=== PATIENT | female | born 1965 | race Two or more races ===

== ENCOUNTER → 2024-10-08 | Outpatient (CLI) | payer MEDICAID, SELFPAY ==
--- NOTE | 2024-10-08 09:00 | XR_ITS ---
Examination: Screening digital mammography, bilateral Computer aided detection 3-D breast Tomosynthesis, bilateral Date and time of exam: October 08, 2024 0827 hours No priors Indication: Screening Technique: Nonmagnified MLO, CC views of the breasts to been obtained, reconstructed from 3-D Tomosynthesis images. R2 computer aided detection program utilized for evaluation of suspicious masses and/or abnormal calcifications. 3-D Tomosynthesis images obtained. Findings: The breasts are heterogeneously dense, which may obscure small masses 20 mm focal asymmetry upper right breast MLO view, 4.7 cm from the nipple Benign calcifications Impression: BI-RADS Category 0: Incomplete: Need additional imaging evaluation 20 mm focal asymmetry upper right breast MLO view, 4.7 cm from the nipple, recommend follow-up spot tomographic views upper outer quadrant right breast right breast sonography to complete the workup.
== END | disposition home or self-care (01) ==
PROVIDERS: PCP Nurse Practitioner Family; Referring Provider Nurse Practitioner Family; Visit Provider Nurse Practitioner Family
DX: Z12.31 Encounter for screening mammogram for malignant neoplasm of breast (principal); R92.8 Other abnormal and inconclusive findings on diagnostic imaging of breast; N64.89 Other specified disorders of breast
CPT/HCPCS: 77063; 77067

== ENCOUNTER → 2024-10-20 | Outpatient (CLI) | payer MEDICAID, SELFPAY ==
--- NOTE | 2024-10-20 08:23 | XR_ITS ---
Examination: PA lateral chest 2 views TECHNIQUE: Upright PA lateral chest 2 views Exam date and time: October 20, 2024 0834 hours INDICATIONS: Posterior left rib pain several months FINDINGS: Normal heart size Lungs are clear. Moderate osteopenia. Clavicles ribs thoracic vertebral bodies appear intact IMPRESSION: No active disease
== END | disposition home or self-care (01) ==
PROVIDERS: PCP Nurse Practitioner Family; Referring Provider Nurse Practitioner Family; Visit Provider Nurse Practitioner Family
DX: R07.81 Pleurodynia (principal)
CPT/HCPCS: 71046

== ENCOUNTER 2024-11-09 10:30 | Day surgery (SDC) | payer MEDICAID, SELFPAY ==
[2024-11-09] VITALS (9 sets, daily range): BP systolic 95–126; BP diastolic 67–90; PULSE 58–73; RESP 10–18; TEMP 36.4–36.8; O2SAT 95–100; BMI 27.5
[2024-11-09] MEDS: SODIUM CHLORIDE 0.9% 500 ML 500 ML 20 ML IV (11:53)
[2024-11-09] MEDS: DiphenhydrAMINE INJ 50 MG/ML VIAL 25 MG IV (11:56)
[2024-11-09] MEDS: MIDAZOLAM INJ 1 MG/ML VIAL 2 ML (ASD USE ONLY) 2 MG IV (12:03)
[2024-11-09] MEDS: fentaNYL CIT INJ 50 mCg/ML AMP 2ML (ASD USE ONLY) IV (12:03)
== END 2024-11-09 13:35 | disposition home or self-care (01) ==
PROVIDERS: Referring Provider Internal Medicine Gastroenterology; Visit Provider Internal Medicine Gastroenterology
PROC: 0DBE8ZX Excision of Large Intestine, Via Natural or Artificial Opening Endoscopic, Diagnostic (ICD-10-PCS; CPT 45380; principal; 2024-11-09 14:45)
DX: Z12.11 Encounter for screening for malignant neoplasm of colon (principal); K64.8 Other hemorrhoids; E03.9 Hypothyroidism, unspecified; E11.9 Type 2 diabetes mellitus without complications
CPT/HCPCS: 45378; J1200; J2250; J3010; J7040

== ENCOUNTER → 2024-11-29 | Outpatient (CLI) | payer MEDICAID, SELFPAY ==
--- NOTE | 2024-11-29 | XR_ITS ---
Examination: PA lateral chest 2 views TECHNIQUE: Upright PA lateral chest 2 views Exam date and time: November 29, 2024 0805 hours Comparison October 20, 2024 INDICATIONS: Anterior chest pain coughing beginning 2 weeks ago. FINDINGS: Normal heart size. Lungs are clear. Osseous structures are intact. IMPRESSION: No active disease
== END | disposition home or self-care (01) ==
PROVIDERS: PCP Nurse Practitioner Family; Referring Provider Nurse Practitioner Family; Visit Provider Nurse Practitioner Family
DX: R07.9 Chest pain, unspecified (principal); R05.9 Cough, unspecified
CPT/HCPCS: 71046

== ENCOUNTER → 2024-12-20 | Outpatient (CLI) | payer MEDICAID, SELFPAY ==
--- NOTE | 2024-12-20 08:03 | XR_ITS ---
Examination: Diagnostic digital mammography, unilateral, right Computer aided detection 3-D breast Tomosynthesis, unilateral Date and time of exam: December 20, 2024 0807 hours INDICATIONS: Mammogram October 08, 2024 20 mm focal asymmetry upper right breast MLO view Technique: Nonmagnified MLO, CC views of the right breast have been obtained, reconstructed from 3-D Tomosynthesis images. R2 computer aided detection program utilized for evaluation of suspicious masses and/or abnormal calcifications. 3-D Tomosynthesis images obtained. Findings: The breast is heterogeneously dense, which may obscure small masses Focal asymmetry remains upper outer right breast, 20 mm Impression: BI-RADS category 3: Probably benign findings One additional 6 month right mammogram follow-up is needed as well as right breast sonography
== END | disposition home or self-care (01) ==
LOC: CDIM 07:59
PROVIDERS: Referring Provider Nurse Practitioner Family; Visit Provider Nurse Practitioner Family
DX: R92.331 Mammographic heterogeneous density, right breast (principal)
CPT/HCPCS: 77061; 77065; G0279

== ENCOUNTER → 2025-02-16 | Outpatient (CLI) | payer MEDICAID, SELFPAY ==
--- NOTE | 2025-02-16 08:00 | XR_ITS ---
Examination: CT right , without contrast. 2-D sagittal reconstructions. 2-D coronal reconstructions. 3-D reconstructions. Date and time of exam:February 16, 2025 0806 hours INDICATIONS: Intermittent back pain one year CTDI: vol (mGy):21.5 DLP: (mGycm):725 Technique: Multiple 1.25 mm axial sections of the thoracic spine without intravenous contrast have been obtained. 2-D sagittal and coronal reconstructions have been obtained. 3-D reconstructions have been obtained. Low dose protocols were performed. One or more of the following dose reduction techniques were used; automated exposure control, adjustment of the mA and/or KV according to patient size, use of iterative reconstruction technique. Findings: Moderate osteopenia. No thoracic fracture Mild thoracic dextroscoliosis Mild diffuse thoracic disc narrowing Mild thoracic spondylosis Axial sections demonstrate no focal thoracic disc protrusion IMPRESSION: No thoracic fracture Mild diffuse thoracic degenerative disc disease If pain persists, consider MRI thoracic spine without contrast follow-up
== END | disposition home or self-care (01) ==
PROVIDERS: PCP Nurse Practitioner Family; Referring Provider Nurse Practitioner Family; Visit Provider Nurse Practitioner Family
DX: M51.34 Other intervertebral disc degeneration, thoracic region (principal)
CPT/HCPCS: 72128

== ENCOUNTER → 2025-04-27 | Outpatient (CLI) | payer MEDICAID, SELFPAY ==
--- NOTE | 2025-04-27 08:30 | XR_ITS ---
Examination: CT chest, without intravenous contrast. Sagittal and coronal 2-D reconstructions. Exam date and time: April 27, 2025, 0753 hours INDICATIONS: Diagnosis solitary pulmonary nodule CTDI:vol (mGy) 8.91 DLP: (mGycm) 324 Technique: Multiple 3.0 mm axial sections of the chest to been obtained. Bone and lung density settings are obtained. Sagittal and coronal 2-D reconstructions have been obtained. Low dose protocols were performed. One or more of the following dose reduction techniques were used; automated exposure control, adjustment of the mA and/or KV according to patient size, use of iterative reconstruction technique. Findings: No thoracic aortic aneurysmal dilatation Pulmonary artery segments are not enlarged. No paratracheal tracheobronchial or bronchopulmonary adenopathy. 5 mm soft pulmonary nodule right upper lobe image 157 6 mm subpleural pulmonary nodule lingular segment axial image 179 No pneumonia or pulmonary edema No visualized liver or splenic lesion No pancreatic or adrenal mass Kidneys partially visualized no hydronephrosis Moderate osteopenia IMPRESSION: Bilateral subcentimeter pulmonary nodules as above, with this study as baseline recommend continued 6 month follow-up CT chest without contrast
== END | disposition home or self-care (01) ==
LOC: CCTX 07:17
PROVIDERS: PCP Family Medicine; Referring Provider Nurse Practitioner Family; Visit Provider Nurse Practitioner Family
DX: R91.8 Other nonspecific abnormal finding of lung field (principal)
CPT/HCPCS: 71271

== ENCOUNTER → 2025-05-05 | Outpatient (CLI) | payer MEDICAID, SELFPAY ==
--- NOTE | 2025-05-05 11:48 | XR_ITS ---
Examination: Thyroid sonography complete TECHNIQUE: Grayscale sonographic images thyroid nodes INDICATIONS: Thyroid sonogram February 28, 2022 right thyroid lobe nodule 6 mm FINDINGS: Right thyroid 5.3 cm Left thyroid 4.4 cm No current thyroid nodules IMPRESSION: No current thyroid nodules
== END | disposition home or self-care (01) ==
PROVIDERS: PCP Nurse Practitioner Family; Referring Provider Nurse Practitioner Family; Visit Provider Nurse Practitioner Family
DX: E04.1 Nontoxic single thyroid nodule (principal)
CPT/HCPCS: 76536

== ENCOUNTER 2025-05-26 14:30 | Outpatient (RCR) | payer MEDICAID, SELFPAY ==
--- NOTE | 2025-05-17 13:43 | PTNOTE_ITS ---
PT OP Initial Eval Patient Information Outpatient Physical Therapy Treatment Date: 05/17/25 Visit Reasons: Back pain Medical Diagnosis: M51.34 Treatment Dx #1: back pain Start of Care: 05/17/25 Date of Onset: 1 yr ago Smoking Status Smoking Status: Never smoker Initial Assessment Subjective: Pt is 59 yr old tuvaluan speaking female who reports mid back pain x1 yr. Pt has pain with most positions and bending. This limits lifting and carrying tolerances. PMH: hypothyroidism Imaging: CT of T/S in EMR Mild diffuse thoracic degenerative disc disease Pt goal: less back pain Objective: T/S ArOM: Flexion: 10% of full with pain Extension: 30% Rotation: pain to the R SB: pain to the L TTP: high of T6-10 paraspinals L>R side UE strength: 4/5 in all planes Assessment: Pt presentation consistent with referring Dx of thoracic DDD with vertebral spurring. Pt not likely going to benefit from conservative Rx to meet long-term goals and has poor rehab potential but we will try a couple trial Rx's to teach HEP. Short Term and [facility] Goals 1. Ind with HEP 2. Decreased TTP of T/S paraspinals from high to min/mod 3. Improved rotation B to 75% of full Treatment Plan 1. Manual therapy ? 2. Therex ? 3. Modalities as indicated, moist heat, ice, estim Frequency and Duration: 1-2x a week for 3 trial visits then up to 12 if progressing Certification Dates: 05/17/25 to 08/15/25 Procedure Charges OP PT Eval Mod Complex 30 minutes: Yes
--- NOTE | 2025-05-24 16:44 | PTNOTE_ITS ---
PT Outpatient Daily Note <CELESTINE Goff - Last Filed: 05/24/25 16:50> OP Daily Note Visit Reasons: Back pain Subjective: Reports mid back pain Objective: See F/S for therex MT: [facility] T/S x 7 Assessment: Pt performed therex best with min verbal cues to correct posture and instructed to avoid pushing into pain. Plan: Continue with POC Length of Time (minutes) of Treatment: 30 Minutes <Constantino Hunter PT - Last Filed: 05/24/25 17:21> OP Daily Note Outpatient Physical Therapy Treatment Date: 05/24/25 Procedure Charges <CELESTINE Goff - Last Filed: 05/24/25 16:50> Therapeutic Exercise 30 minutes: Yes
--- NOTE | 2025-05-26 15:11 | PT.ODAYNRPT ---
PT Outpatient Daily Note OP Daily Note Outpatient Physical Therapy Treatment Date: 05/26/25 Visit Reasons: Back pain Subjective: States she is continuing to experience mid back pain L>R Objective: See F/S for therex MT: STM x T/S x 7 min Assessment: Pt tolerated therex well with no increase in pain, performs best with minimal verbal cues to correct posture and avoid painful ROM. Demonstrated good understanding of the importance to maintain good posture throughout day and during therex. Plan: Continue with POC Length of Time (minutes) of Treatment: 30 Minutes Procedure Charges Therapeutic Exercise 30 minutes: Yes
== END 2025-05-29 23:59 | disposition home or self-care (01) ==
LOC: CPTX 14:30
PROVIDERS: PCP Nurse Practitioner Family; Referring Provider Nurse Practitioner Family; Visit Provider Nurse Practitioner Family
DX: M54.6 Pain in thoracic spine (principal)
CPT/HCPCS: 97110; 97162

== ENCOUNTER → 2025-06-21 | Outpatient (CLI) | payer MEDICAID, SELFPAY ==
--- NOTE | 2025-06-21 15:06 | XR_ITS ---
Examination: Thyroid sonography complete TECHNIQUE: Grayscale sonographic images thyroid lobes Date and time: June 21, 2025 1518 hours, comparison May 05, 2025 INDICATIONS: 6 mm nodule right thyroid on sonogram February 28, 2022 FINDINGS: Right thyroid 3.1 cm Left thyroid 3.7 cm No cystic or solid nodules IMPRESSION: No solid nodules identified
== END | disposition home or self-care (01) ==
PROVIDERS: PCP Nurse Practitioner Family; Referring Provider Nurse Practitioner Family; Visit Provider Nurse Practitioner Family
DX: E04.1 Nontoxic single thyroid nodule (principal)
CPT/HCPCS: 76536

== ENCOUNTER 2025-06-27 15:30 | Outpatient (RCR) | payer MEDICAID, SELFPAY ==
--- NOTE | 2025-06-08 15:09 | PT.ODAYNRPT ---
PT Outpatient Daily Note OP Daily Note Outpatient Physical Therapy Treatment Date: 06/08/25 Visit Reasons: pain in thoracic spine Subjective: Pt c/o of mid back pain Lt side greather than Rt. Objective: See F/S for therex Assessment: Performed therex well with minimal cues required to avoid shrugging shoulders during exercises. Reports relief of back pain post therex and STM to T/S. States she is awaiting to be fitted for a back brace from her provider. Plan: Continue with POC Length of Time (minutes) of Treatment: 30 Minutes Procedure Charges Therapeutic Exercise 30 minutes: Yes
--- NOTE | 2025-06-14 15:36 | PT.ODAYNRPT ---
PT Outpatient Daily Note OP Daily Note Outpatient Physical Therapy Treatment Date: 06/14/25 Visit Reasons: pain in thoracic spine Subjective: Pt reports she continues to have pain. Objective: Please see flow sheet for ther ex list. Assessment: Pt able to complete interventions but c/o pain. Plan: Continue with poC. Length of Time (minutes) of Treatment: 30 Minutes Procedure Charges Therapeutic Exercise 30 minutes: Yes
--- NOTE | 2025-06-16 15:24 | PT.ODAYNRPT ---
PT Outpatient Daily Note OP Daily Note Outpatient Physical Therapy Treatment Date: 06/16/25 Visit Reasons: pain in thoracic spine Subjective: Pt c/o minimal pain to T/S. Objective: See F/S for therex performed Assessment: Improved posture and form with therband exercises; requires minimal vc to avoid shrugging shoulders during exercises. Improved endurance with exercises, requiring less breaks due to muscle fatigue. Plan: Continue with POC Length of Time (minutes) of Treatment: 30 Minutes Procedure Charges Therapeutic Exercise 30 minutes: Yes
--- NOTE | 2025-06-21 16:43 | PT.ODAYNRPT ---
PT Outpatient Daily Note OP Daily Note Outpatient Physical Therapy Treatment Date: 06/21/25 Visit Reasons: pain in thoracic spine Subjective: Pt c/o minimal T/S pain, L>R. Objective: See F/S for therex performed Assessment: Demo'd improved independence with therex; requires min to none corrective cues with exercises. Requires less breaks with resistance band exercises due to muscle fatigue. Post STM to T/S pt reports no pain to that area. Plan: Continue with POC Length of Time (minutes) of Treatment: 30 Minutes Procedure Charges Therapeutic Exercise 30 minutes: Yes
--- NOTE | 2025-06-27 17:19 | PT.ODAYNRPT ---
PT Outpatient Daily Note OP Daily Note Outpatient Physical Therapy Treatment Date: 06/27/25 Visit Reasons: pain in thoracic spine Subjective: Pt c/o minimal pain to T/S Objective: See F/S for therex performed Assessment: Progressed to 1lb wt with scap exercises, maintained good mechanics and control with no increase in pain. Good tolerance to STM to T/S with reports of no pain post session. Plan: Continue with POC Length of Time (minutes) of Treatment: 30 Minutes Procedure Charges Therapeutic Exercise 30 minutes: Yes
== END 2025-06-28 23:59 | disposition home or self-care (01) ==
LOC: CPTX 15:30
PROVIDERS: PCP Nurse Practitioner Family; Referring Provider Nurse Practitioner Family; Visit Provider Nurse Practitioner Family
DX: M54.6 Pain in thoracic spine (principal)
CPT/HCPCS: 97110

== ENCOUNTER → 2025-07-09 | Outpatient (CLI) | payer MEDICAID, SELFPAY ==
--- NOTE | 2025-07-09 11:00 | XR_ITS ---
Examination: MRI thoracic spine without contrast. Date and time of exam: July 09, 2025, 1110 hours INDICATIONS: Mid back pain radiating to the area below the left scapula 1 year Technique: Multiple sagittal and axial images of the thoracic spine have been obtained. T1 weighted localizer, sagittal T2 weighted images, TR 30-50, TE 148, T1 weighted sagittal images, TR 650, TE 14, T2-weighted transverse images, TR 6770, TE 142 Findings: Satisfactory alignment thoracic vertebral bodies No thoracic fracture. Normal marrow signal thoracic vertebral bodies. Diffuse thoracic disc desiccation. Mild diffuse thoracic disc narrowing. Axial images demonstrate no focal thoracic disc protrusion. No localized enlargement thoracic cord, no increased signal in the thoracic cord. No thoracic syrinx cavity Impression: Mild diffuse thoracic degenerative disc disease No acquired spinal stenosis
== END | disposition home or self-care (01) ==
LOC: SMRI 10:13
PROVIDERS: PCP Nurse Practitioner Family; Referring Provider Nurse Practitioner Family; Visit Provider Nurse Practitioner Family
DX: M51.34 Other intervertebral disc degeneration, thoracic region (principal)
CPT/HCPCS: 72146

== ENCOUNTER 2025-07-14 15:00 | Outpatient (RCR) | payer MEDICAID, SELFPAY ==
--- NOTE | 2025-06-29 16:18 | PT.ODAYNRPT ---
PT Outpatient Daily Note OP Daily Note Outpatient Physical Therapy Treatment Date: 06/29/25 Visit Reasons: Pain in thoracic spine Subjective: Pt states she is doing better and is not experiencing pain in T/S today. Objective: See F/S for therex performed Assessment: Improved tolerance and endurance with therex, no rest breaks required. Demo'd good mechanics with therex with min to none corrective cues required. Plan: Continue with POC Length of Time (minutes) of Treatment: 30 Minutes Procedure Charges Therapeutic Exercise 30 minutes: Yes
--- NOTE | 2025-07-06 15:34 | PT.ODAYNRPT ---
PT Outpatient Daily Note OP Daily Note Outpatient Physical Therapy Treatment Date: 07/06/25 Visit Reasons: Pain in thoracic spine Subjective: Less back pain lately Objective: See F/S for therex MT: STM T/S with Kenneth juan7' Assessment: Min/moderate TTP of thoracic paraspinals with MT Plan: Continue per POC Length of Time (minutes) of Treatment: 30 Minutes Procedure Charges Therapeutic Exercise 30 minutes: Yes
--- NOTE | 2025-07-12 17:27 | PT.ODAYNRPT ---
PT Outpatient Daily Note OP Daily Note Outpatient Physical Therapy Treatment Date: 07/12/25 Visit Reasons: Pain in thoracic spine Subjective: Less back pain lately Objective: See F/S for therex Assessment: Min/moderate TTP of thoracic paraspinals Plan: Continue per POC Length of Time (minutes) of Treatment: 30 Minutes Procedure Charges Therapeutic Exercise 30 minutes: Yes
--- NOTE | 2025-07-14 15:39 | PT.ODS1RPT ---
PT OP Progress/Discharge Note Date of Service: 07/14/25 Progress Note/DC Note Progress Note/Discharge Note: DC Note Patient Information Visit Reasons: Pain in thoracic spine Service Continue Service or Discharge: Discharge Discharge Date: 07/14/25 Status Subjective: Much less pain and better movement of the back since starting therapy. She is doing HEP with back pain relief Objective: See F/S for therex T/S AROM: Rotation: 80% of full TTP: min of T6-10 paraspinals Flexoin: 50% of full Extension: 40% of full Assessment: Pt has attended 12 visits with good progress to meet therapy goals. She has improved thoracic rotation to more than 75% of full to meet that goal. She has decreased TTP of T/S parapinals from high to min to meet that goal and is doing HEP to control pain. Plan: D/C with HEP Procedure Charges Therapeutic Exercise 30 minutes: Yes
== END 2025-07-29 23:59 | disposition home or self-care (01) ==
LOC: CPTX 15:00
PROVIDERS: PCP Nurse Practitioner Family; Referring Provider Nurse Practitioner Family; Visit Provider Nurse Practitioner Family
DX: M51.34 Other intervertebral disc degeneration, thoracic region (principal)
CPT/HCPCS: 97110

== ENCOUNTER → 2025-07-20 | Outpatient (CLI) | payer MEDICAID, SELFPAY ==
--- NOTE | 2025-07-20 15:00 | XR_ITS ---
Examination: Breast ultrasound, unilateral, right Date and time of exam: July 20, 2025, 1458 hours INDICATIONS: Mammogram December 20, 2024 20 mm focal asymmetry upper outer right breast Technique: Real-time escalera scale ultrasonographic imaging performed right breast including all 4 quadrants as well as nipple retroareolar and axillary region. Findings: No cystic or solid mass IMPRESSION: BI-RADS Category 1: Negative study
== END | disposition home or self-care (01) ==
PROVIDERS: PCP Nurse Practitioner Family; Referring Provider Nurse Practitioner Family; Visit Provider Nurse Practitioner Family
DX: R92.30 Dense breasts, unspecified (principal)
CPT/HCPCS: 76641

== ENCOUNTER → 2025-07-25 | Outpatient (CLI) | payer MEDICAID, SELFPAY ==
--- NOTE | 2025-07-25 14:15 | XR_ITS ---
Examination: Diagnostic digital mammography, unilateral, right Computer aided detection 3-D breast Tomosynthesis, unilateral Date and time of exam: July 25, 2025, 1349 hours, compared to mammograms dating to October 08, 2024 INDICATIONS: Mammogram October 08, 2024 20 mm focal asymmetry upper right breast MLO view Technique: Nonmagnified MLO, CC views of the right breast have been obtained, reconstructed from 3-D Tomosynthesis images. R2 computer aided detection program utilized for evaluation of suspicious masses and/or abnormal calcifications. 3-D Tomosynthesis images obtained. Findings: The breast is heterogeneously dense, which may obscure small masses Stable mild focal asymmetry upper right breast MLO view No interval suspicious masses Impression: BI-RADS category 0: Incomplete: Need additional imaging evaluation Recommend repeat right breast sonography to confirm no nodule at the site of focal asymmetry upper right breast MLO view on the current study
== END | disposition home or self-care (01) ==
PROVIDERS: PCP Nurse Practitioner Family; Referring Provider Nurse Practitioner Family; Visit Provider Nurse Practitioner Family
DX: R92.8 Other abnormal and inconclusive findings on diagnostic imaging of breast (principal); N64.89 Other specified disorders of breast
CPT/HCPCS: 77061; 77065; G0279